=== PATIENT | male | born 2000 | race Caucasian/White ===

== ENCOUNTER 2022-01-15 08:45 | Emergency (ER) | payer OTHER, SELFPAY ==
[2022-01-15 09:11] VITALS: PULSE 84; RESP 20; TEMP 36.4; O2SAT 100
--- NOTE | 2022-01-15 09:36 | ED.GENADULT ---
HPI - General Adult General Chief complaint: Upper Respiratory Infection Stated complaint: Sore Throat Source: patient Mode of arrival: ambulatory Limitations: no limitations History of Present Illness HPI narrative: Patient presents for evaluation of sick symptoms for the last 5 days. Symptoms include fever, body aches, runny nose, sore throat, productive cough and headache. No chills, nausea, vomiting or diarrhea. He has been taking ibuprofen for his symptoms without considerable improvement in his symptoms thereafter. No recent sick contacts to his knowledge. He has never had COVID. He did not receive COVID vaccination. No additional complaints or concerns. Related Data Allergies Allergy/AdvReac Type Severity Reaction Status Date / Time No Known Allergies Allergy Verified 01/15/22 09:10 Review of Systems Review of Systems: CONSTITUTIONAL: Reports fever. Denies chills, or sweats. EYES: Denies visual changes, redness, or discharge. ENT: Reports rhinorrhea and sore throat. Denies otalgia CARDIOVASCULAR: Denies chest pain, palpitations, or edema. RESPIRATORY: Reports cough. Denies SOB GASTROINTESTINAL: Denies abdominal pain, nausea, vomiting, or diarrhea. GENITOURINARY: Denies dysuria or hematuria. SKIN: Denies rash or itching. MUSCULOSKELETAL: Reports generalized body aches. NEUROLOGIC: Reports headache. Denies numbness, dizziness, or weakness. PSYCHIATRIC: Denies anxiety or depression. [facility] Past Medical History Medical History No pertinent past medical history Surgical History Surgical History No pertinent past surgical history Family History Family History Father Family history non-contributory Social History Social History Alcohol intake: current Alcohol use details: rare Substance use: never Living arrangements: with family Gender identity (if verbalized by the patient): Male Spiritual care concerns: No Exam Narrative: GENERAL: Well-appearing, well-nourished, and in no acute distress. HEAD: Normocephalic, atraumatic. EYES: PERRLA and EOMI. ENT: Nares clear, no rhinorrhea or epistaxis. Mucous membranes moist. There is posterior pharyngeal erythema without exudate. Uvula is midline. Bilateral TMs pearly dominguez nonbulging NECK: Supple. No adenopathy or masses. No carotid bruits or JVD CHEST: Clear to auscultation. No respiratory distress. No wheezes rales or rhonchi HEART: Regular rate and rhythm. No murmur heard. Normal peripheral pulses. ABDOMEN: Soft, nontender, nondistended, normal active bowel sounds. EXTREMITIES: Normal range of motion. No edema. SKIN: Warm, dry, no rash. NEURO: No focal deficits. Alert and oriented x3. PSYCH: Normal mood and affect. Course Course Emergency Course: This is a 21-year-old male who presented for evaluation of sick symptoms. Influenza and strep were negative. COVID positive. Discussed risks vs benefits of Paxlovid. He does not wish to be treated with such due to potential for rebound symptoms. Will tx with mucinex dm and cepacol. He should follow up outpatient for further evaluation and treatment and return for worsening symptoms. Pt in agreement with plan of care. Level of Care: Express Care Visit Vital Signs Vital signs: Vital Signs Temperature 36.4 C 01/15/22 09:11 Pulse Rate 84 01/15/22 09:11 Respiratory Rate 20 01/15/22 09:11 Pulse Oximetry 100 01/15/22 09:11 Oxygen Delivery Room Air 01/15/22 09:11 Temperature 36.4 C 01/15/22 09:11 Pulse Rate 84 01/15/22 09:11 Respiratory Rate 20 01/15/22 09:11 Pulse Oximetry 100 01/15/22 09:11 Oxygen Delivery Room Air 01/15/22 09:11 Medical Decision Making Vital Signs Vital Signs: Vital Signs Temperature 36.
== END 2022-01-15 09:46 | disposition home or self-care (01) ==
PROVIDERS: Emergency Provider Nurse Practitioner
DX: U07.1 COVID-19 (principal)
CPT/HCPCS: 87081; 87426; 87804; 87880; 99203; C9803; G0463

== ENCOUNTER 2022-09-29 18:51 | Emergency (ER) | payer OTHER, SELFPAY ==
--- NOTE | 2022-09-29 19:04 | ED.URI ---
HPI - URI/Sore Throat General Chief Complaint: Upper Respiratory Infection Stated Complaint: Sore Throat/Chest Pain Source: patient and RN notes reviewed Limitations: no limitations History of Present Illness HPI Narrative: Patient is a 21-year-old male who presents to the [facility] with complaints of generalized body aches, chills, and sore throat for the past 6 days. Patient states that he is unsure of whether not he has had fevers but feels like he has due to the sweats and chills. He reports ongoing sore throat. Denies nasal symptoms. Reports a very infrequent nonproductive cough. Denies ear pain. Denies shortness of breath. His respirations are not labored. Patient states that he sometimes has a burning in his chest when taking a deep breath. It is not present at this time. he denies any past medical history. Related Data Allergies Allergy/AdvReac Type Severity Reaction Status Date / Time No Known Allergies Allergy Verified 01/15/22 09:10 Review of Systems Review of Systems: CONSTITUTIONAL: Reports fever, chills, and sweats. EYES: Denies visual changes, redness, or discharge. ENT: Reports sore throat. CARDIOVASCULAR: Denies chest pain, palpitations, or edema. RESPIRATORY: Reports infrequent cough and chest tightness. GASTROINTESTINAL: Denies abdominal pain, nausea, vomiting, or diarrhea. GENITOURINARY: Denies dysuria or hematuria. SKIN: Denies rash or itching. MUSCULOSKELETAL: Denies back pain, joint pain, or myalgia. NEUROLOGIC: Denies headache, numbness, or weakness. Pertinent positives per HPI. [facility] Past Medical History Medical History No pertinent past medical history Surgical History Surgical History No pertinent past surgical history Family History Family History Father Family history non-contributory Social History Social History Alcohol intake: current Alcohol use details: rare Substance use: never Living arrangements: with family Gender identity (if verbalized by the patient): Male Spiritual care concerns: No Comments At the time of my signature, I reviewed and agree with the nursing past medical, surgical, social, and family history. There is no relevant family history pertinent to the patient complaint. Exam Narrative: GENERAL: This is a well-nourished, well-developed patient, in no apparent distress. HEAD: normocephalic, atraumatic. EYES: Sclera clear/white. Vision is grossly intact. EARS: External ears normal. Hearing grossly intact. NOSE: External nose normal with no obvious nasal discharge, nares without redness, no rhinorrhea. THROAT: Oropharyngeal erythema. NECK: Neck supple, non-tender without lymphadenopathy, masses or thyromegaly. CARDIOVASCULAR: Regular rate and rhythm without murmurs, gallops, or rubs. RESPIRATORY: Clear to auscultation. Breath sounds equal bilaterally. No wheezes, rales, or rhonchi. GASTROINTESTINAL: Abdomen soft, non-tender, nondistended. Bowel sounds are active. No hepato-splenomegaly, or palpable masses. No guarding. SKIN: warm, intact with no suspicious lesions or rash, good texture and turgor. NEURO: awake, alert, and oriented to person, place and time. There were no obvious focal neurologic abnormalities. Course Course Level of Care: Express Care Visit Vital Signs Vital signs: Vital Signs Temperature 99 F 09/29/22 19:07 Pulse Rate 86 09/29/22 19:07 Respiratory Rate 16 09/29/22 19:07 Blood Pressure 141/84 H 09/29/22 19:07 Pulse Oximetry 100 09/29/22 19:07 Oxygen Delivery Room Air 09/29/22 19:07 Temperature 99 F 09/29/22 19:07 Pulse Rate 86 09/29/22 19:07 Respiratory Rate 16 09/29/22 19:07 Blood Pressure 141/84 H 09/29/22 19:07 Pulse Oximetry 100 09/29/22 19
[2022-09-29 19:07] VITALS: BP 141/84; PULSE 86; RESP 16; TEMP 37.2; O2SAT 100
== END 2022-09-29 19:30 | disposition home or self-care (01) ==
PROVIDERS: Emergency Provider Nurse Practitioner
DX: B34.9 Viral infection, unspecified (principal)
CPT/HCPCS: 87081; 87880; 99213; G0463

== ENCOUNTER 2022-09-30 19:14 | Emergency (ER) | payer OTHER, SELFPAY ==
[2022-09-30 19:18] VITALS: BP 124/69; PULSE 77; RESP 14; TEMP 36.7; O2SAT 99
--- NOTE | 2022-09-30 19:25 | ED.GENADULT ---
HPI - General Adult General Chief complaint: Urogenital-Male Stated complaint: Urinary Problem Source: patient and RN notes reviewed History of Present Illness HPI narrative: 21 yo M presents to urgent care with complaints of darker urine than normal. Pt states he was dx with a viral illness yesterday with URI symptoms. Pt states he was having those symptoms for the last 5 days or so and has been taking ibuprofen for his fevers. Pt states he has noticed some tingling in his penis when he urinates but only has noticed it since the urine has been darker. Pt denies any abdominal pain, burning with urination, penile discharge, rashes, blisters, or penile lesions. Related Data Home Medications Medication Instructions Recorded Confirmed No Home Medications 09/30/22 09/30/22 Allergies Allergy/AdvReac Type Severity Reaction Status Date / Time atomoxetine [From Strattera] Allergy Vomiting Verified 09/30/22 19:29 Review of Systems Review of Systems: Pertinent positives and pertinent negatives per HPI. [facility] Past Medical History Medical History No pertinent past medical history Surgical History Surgical History No pertinent past surgical history Family History Family History Father Family history non-contributory Social History Social History Alcohol intake: current Alcohol use details: rare Substance use: never Living arrangements: with family Gender identity (if verbalized by the patient): Male Spiritual care concerns: No Comments At the time of my signature, I reviewed and agree with the nursing past medical, surgical, social, and family history. There is no relevant family history pertinent to the patient complaint. Exam Narrative: GENERAL: This is a well-nourished, well-developed patient, in no apparent distress. HEAD: normocephalic, atraumatic. EYES: Sclera clear/white. Vision is grossly intact. EARS: External ears normal, auditory canals clear and without drainage. Hearing grossly intact. NOSE: External nose normal with no obvious nasal discharge, nares without redness, no rhinorrhea. THROAT: Mucous membranes moist, posterior pharynx clear. NECK: Neck supple, non-tender without lymphadenopathy, masses or thyromegaly. CARDIOVASCULAR: Regular rate RESPIRATORY: No respiratory distress GASTROINTESTINAL: Abdomen soft, non-tender, nondistended. Bowel sounds are active. No hepato-splenomegaly, or palpable masses. No guarding. SKIN: warm, intact with no suspicious lesions or rash, good texture and turgor. NEURO: awake, alert, and oriented to person, place and time. There were no obvious focal neurologic abnormalities. Course Course Level of Care: Express Care Visit Vital Signs Vital signs: Vital Signs Temperature 98.1 F 09/30/22 19:18 Pulse Rate 77 09/30/22 19:18 Respiratory Rate 14 09/30/22 19:18 Blood Pressure 124/69 09/30/22 19:18 Pulse Oximetry 99 09/30/22 19:18 Oxygen Delivery Room Air 09/30/22 19:18 Temperature 98.1 F 09/30/22 19:18 Pulse Rate 77 09/30/22 19:18 Respiratory Rate 14 09/30/22 19:18 Blood Pressure 124/69 09/30/22 19:18 Pulse Oximetry 99 09/30/22 19:18 Oxygen Delivery Room Air 09/30/22 19:18 Reviewed Medical Decision Making MDM Narrative Medical decision making narrative: Refrain from sexual activity until you find out the results of your urine culture. Follow up with a street department dispatcher. Go to the ER with any new or worsening symptoms. Discussed options for Abx treatment today for STIs. Pt has decided to wait on treatment until culture results come back. Pt states he always has hematuria but noticed it was much darker than normal. Pt encouraged to stop taking the ibuprofen for hi
== END 2022-09-30 20:06 | disposition home or self-care (01) ==
PROVIDERS: Emergency Provider Nurse Practitioner Family
DX: R31.9 Hematuria, unspecified (principal); Z20.2 Contact with and (suspected) exposure to infections with a predominantly sexual mode of transmission
CPT/HCPCS: 81003; 87491; 87591; 87661; 99213; G0463